=== PATIENT | female | born 1950 | race Caucasian/White ===

== ENCOUNTER → 2021-09-16 | Day surgery (SDC) | payer OTHER | END | disposition home or self-care (01) | LOC: JRADUS-SUR 11:44 | PROVIDERS: ATTEND Internal Medicine Hematology & Oncology | PROC: 0H9T3ZX Drainage of Right Breast, Percutaneous Approach, Diagnostic (ICD-10-PCS; principal; 2021-09-16) | DX: C50.612 Malignant neoplasm of axillary tail of left female breast (principal) | CPT/HCPCS: 19083; 19084; 76642-TC-RT; 77065-TC; 87899; 88342-TC; A4648 ==